=== PATIENT | male | born 1995 | race African-American/Black ===

== ENCOUNTER 2020-09-25 16:21 | Emergency (ER) | payer MEDICAID ==
[~2020-09-25] VITALS: Ht 167.6 cm; Wt 92.0 kg
[2020-09-25 18:21] VITALS: BP 120/78
== END 2020-09-25 18:22 | disposition home or self-care (01) ==
LOC: ER 16:21
DX: J06.9 Acute upper respiratory infection, unspecified (principal)
CPT/HCPCS: 71045; 99283